=== PATIENT | female | born 2000 | race Caucasian/White ===

== ENCOUNTER 2024-01-01 01:03 | Emergency (ER) | payer OTHER ==
[2024-01-01] MEDS ORDERED: Ibuprofen 200 MG TAB ONE (02:17)
[2024-01-01] MEDS ORDERED: Acetaminophen 500 MG TAB ONE (02:18)
== END 2024-01-01 02:35 | disposition home or self-care (01) ==
LOC: CSHERS 01:03
DX: S09.90XA Unspecified injury of head, initial encounter (principal); W22.8XXA Striking against or struck by other objects, initial encounter
CPT/HCPCS: 70450